=== PATIENT | male | born 1940 | race Caucasian/White ===

== ENCOUNTER 2016-08-13 11:30 | Outpatient (CLI) | payer MEDICARE | END 2016-08-13 11:31 | disposition home or self-care (01) | DX: J18.9 Pneumonia, unspecified organism (principal) ==

== ENCOUNTER 2018-05-18 12:27 | Outpatient (CLI) | payer MEDICARE ==
--- NOTE | 2018-05-18 20:39 | XRAY Report ---
Reason: SOA,COUGH,SMOKER Procedure Date: 05/18/2018 Accession Number: [id number] / [id number] Procedure: XR - Chest 2 View X-Ray CPT Code: 81394 FULL RESULT: EXAM: CHEST RADIOGRAPHY EXAM DATE: 05/18/2018 12:40 PM. CLINICAL HISTORY: Cough. COMPARISON: CHEST 2 VIEW PA/LAT 08/13/2016 11:44 AM CHEST 2 VIEW PA/LAT 07/30/2016 10:07 AM XR CHEST PA AND LAT 06/04/2009 1:17 PM. TECHNIQUE: 2 views. FINDINGS: Lungs/Pleura: No focal opacities evident. No pleural effusion. No pneumothorax. Normal volumes. Mediastinum: Heart and mediastinal contours are notable for aortic calcification. Other: None. IMPRESSION: No acute cardiopulmonary abnormality demonstrated. RADIA
== END 2018-05-18 12:28 | disposition home or self-care (01) ==
LOC: DI 12:27
PROVIDERS: ATTEND Physician Assistant
DX: R06.02 Shortness of breath (principal); F17.200 Nicotine dependence, unspecified, uncomplicated; R05 Cough
CPT/HCPCS: 71046

== ENCOUNTER 2019-03-20 12:39 | Outpatient (CLI) | payer MEDICARE | END 2019-03-20 12:40 | disposition short-term general hospital (02) | LOC: EMS 12:39 | PROVIDERS: ATTEND Surgery | DX: R41.82 Altered mental status, unspecified (principal); R47.9 Unspecified speech disturbances | CPT/HCPCS: A0425; A0427 ==

== ENCOUNTER 2019-08-24 14:53 | Outpatient (CLI) | payer MEDICARE, MEDICAID ==
[2019-08-24 17:38] LABS: INR 1.2 (0.8-1.2); PT - PROTHROMBIN TIME 13.1 secs (9.9-12.6)
[2019-08-24 18:26] LABS: BASOPHILS # (AUTO) 0.1 10^3/uL (0.0-0.1); BASOPHILS % (AUTO) 0.9 %; EOSINOPHILS # (AUTO) 0.2 10^3/uL (0.0-0.7); HGB - HEMOGLOBIN 13.2 g/dL (14.0-18.0); LYMPHOCYTES # (AUTO) 1.3 10^3/uL (1.5-3.5); LYMPHOCYTES % (AUTO) 17.4 %; MEAN CORPUSCULAR HEMOGLOBIN 28.8 pg (27.0-31.0); MEAN CORPUSCULAR HGB CONC 31.6 g/dL (32.0-36.0); MEAN CORPUSCULAR VOLUME 91.1 fL (80.0-94.0); MONOCYTES # (AUTO) 0.6 10^3/uL (0.0-1.0); MONOCYTES % (AUTO) 8.6 %; NEUTROPHILS # (AUTO) 5.2 10^3/uL (1.5-6.6); NEUTROPHILS % (AUTO) 69.6 %; PLT - PLATELET COUNT 298 10^3/uL (130-450); RED BLOOD COUNT 4.59 10^6/uL (4.70-6.10); RED CELL DISTRIBUTION WIDTH 13.2 % (12.0-15.0); WHITE BLOOD COUNT 7.4 x10^3/uL (4.8-10.8)
[2019-08-24 18:38] LABS: CALCIUM 9.9 mg/dL (8.5-10.3); CREATININE 1.5 mg/dL (0.6-1.2)
== END 2019-08-24 14:54 | disposition home or self-care (01) ==
LOC: LAB.S 14:53
PROVIDERS: ATTEND Specialist
DX: I35.0 Nonrheumatic aortic (valve) stenosis (principal); R06.02 Shortness of breath
CPT/HCPCS: 36415; 80048; 85025; 85610

== ENCOUNTER 2019-09-03 17:58 | Outpatient (CLI) | payer MEDICARE, MEDICAID | END 2019-09-03 17:59 | disposition short-term general hospital (02) | LOC: EMS 17:58 | PROVIDERS: ATTEND Surgery | DX: R41.82 Altered mental status, unspecified (principal) | CPT/HCPCS: A0425; A0427 ==

== ENCOUNTER 2019-11-01 15:00 | Outpatient (CLI) | payer MEDICARE, MEDICAID ==
--- NOTE | 2019-11-01 17:17 | CONSULTATION NOTE ---
Palliative Care Consultation - Referral Referring Provider: Sherron Mancera PA-C Time of Visit: [id number] Referral setting: Home Referral Reason: COPD/Severe Aortic Stenosis/ - Information Sources Records reviewed: Previous records reviewed History/Review of Systems obtained from: Patient Exam limitations: Clinical condition (patient with mild cognitive impairment; STM issues; poor health literacy) - History of Present Illness Brief History of Present Illness: This is a 78-year-old gentleman with multiple comorbidities including severe COPD, on intermittent supplemental oxygen, severe aortic valve stenosis awaiting plans for TAVR, CVA in March 2019, history of CHF, history of UT, and recent admission to [facility] for pneumonia and sepsis. Patient was seen by [facility], patient's goals to return to his own home, he had been staying at his daughter's. Medication compliance and adherence was problematic, they have set up a dispensing Mediset. Patient lives in a fairly small upper bedroom room, for which she is very grateful to be back home. He does perceive he has had decline in his health, particularly since his stroke. This occurred on 03/20/2019 was right cerebral. According to him he has no residual, though he does appear to have some slowed cognitive response, but does not appear confused, and able to participate in exam. What is most important to patient, is being home, remaining independent, avoiding hospitalization, and being with family. He has a close relationship with his granddaughter Concepcion, who is off from school secondary to the Covid19 crisis. He does not present with high symptom burden, reports his insomnia is resolved, he does have severe dyspnea but paces activity and does not find it distressful, denies any pain, appetite is good, does have poor activity tolerance and fatigue but does not seem bothered with this. Palliative care to provide support, further follow-up on advanced care planning, and anticipatory guidance. Patient does appear quite frail with all his multiple core morbidities, and at high risk for ED/hospitalization. 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), Other ([facility]) Endocrine/Autoimmune: reports: None GI: reports: GERD : reports: Retention, Frequency HEENT: reports: None Psych: reports: Depression, Panic attacks Musculoskeletal: reports: None MRSA Hx?: No - Past Surgical History General: reports: Colonoscopy Ortho: reports: Arthroscopic surgery Cardiovascular: reports: Coronary stent, Angioplasty HEENT: reports: Tonsil/Adenoidectomy - Substance History Use: Uses substance without health or social issues: Tobacco (shelter smoker; stopped 04/2019) Social History - Living Situation Living arrangement: At home Living Situation: With family (Lives with Anthony wilhelm, his girlfriend, and grandkim. 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 He came up to [facility] after his , to be closer to family. He reports his health has declined significantly since his stroke. Family History - Family History Family History: Mother: (at age 64/CHF), Father: , Other family: Al[facility] Well (daughter ) Family History Comment/Other: of suicide Medications/Allergies - Medications Home Medications: Ambulatory Orders Medication Instructions Recorded Confirmed Venlafaxine ER [Effexor ER] 150 mg PO DAILY 03/16/14 11/02/19 Multivitamin [Multivitamins] 1 each PO DAILY 05/10/14 11/02/19 Alprazolam [Xanax] 0.25 mg PO BID PRN 11/02/19 11/02/19 Amlodipine Besylate 10 mg PO DAILY 11/02/19 11/02/19 Clopidogrel [Plavix] 75 mg PO DAILY 11/02/19 11/02/19 Magnesium Oxide [Magnesium] 400 mg PO DAILY 11/02/19 11/02/19 Metoprolol Succinate 25 mg PO DAILY 11/02/19 11/02/19 Pantoprazole [Protonix] 40 mg PO DAILY 11/02/19 11/02/19 Pravastatin [Pravachol] 10 mg PO DAILY 11/02/19 11/02/19 Suvorexant [Belsomra] 10 mg PO QPM 11/02/19 11/02/19 traZODone [Desyrel] 100 mg PO QPM 04/03/20 04/03/20 - Allergies Allergies/Adverse Reactions: Allergies Allergy/AdvReac Type Severity Reaction Status Date / Time Penicillins Allergy Rash Verified 05/09/14 13:38 Review of Systems - Constitutional Constitutional: reports: Fatigue (very sedentary; spends most of time in room), Weight stable. denies: Fever, Chills - Eyes Eyes: reports: Vision loss - Ears, Nose & Throat Ears, Nose & Throat: reports: Hearing loss, Dry mouth - Cardiovascular Cardiovascular: reports: Exertional dyspnea, Decr. exercise tolerance, Orthopnea. denies: Palpitations, Chest pain, Edema, Lightheadedness - Respiratory Respiratory: reports: Cough (severe coughing spasms when coughs/non productive;), Orthopnea, SOB at rest, SOB with exertion. denies: Sputum production, Hemoptysis - Gastrointestinal Gastrointestinal: reports: Good appetite. denies: Constipation, Nausea, Reflux/heartburn - Genitourinary Genitourinary: reports: Frequency - Musculoskeletal Musculoskeletal: reports: Stiffness, Muscle weakness - Integumentary Integumentary: reports: Dryness. denies: Rash - Neurological Neurological: reports: General weakness, Memory problems (appears A & O; poor STM; poor health history), Abnormal gait - Psychiatric Psychiatric: reports: Anxiety ("get anxious" unable to identify underlying fears/concerns). denies: Depression - Hematologic/Lymphatic Hematologic/Lymphatic: reports: Recurrent infections (recent hospitalization 09/12 pneumonia/sepsis) - All Other Systems All Other Systems: reports: Reviewed and negative Physical Exam - Vital Signs Temperature: 97.1 C Pulse Rate: 72 Respiratory Rate: 18 O2 Saturation: 95 (at 2 liters) Blood Pressure: 116/62 - Physical Exam General Appearance: positive: No acute distress, Alert Eyes Bilateral: positive: Normal inspection ENT: positive: No signs of dehydration Neck: positive: Trachea midline Cardiovascular: positive: Other (murmer) Respiratory: positive: Diminished throughout. negative: Wheezes, Rales, Rhonchi Abdomen: positive: Non-tender, Soft, Nml bowel sounds Skin: positive: Pallor, Dryness Extremities: positive: No pedal edema Neurologic/Psychiatric: positive: Oriented x3, Mood/affect nml, Weakness, Flat affect Palliative Care Pain: No pain Tiredness/Fatigue: Moderate (4-6) Drowsiness/Sedation: Mild (1-3) Nausea: None Anorexia: None Dyspnea: Severe (7-10) Depression: Moderate (4-6) Anxiety: Moderate (4-6) Feelings of wellbeing/Perceived Quality of Life: Good, Acceptable, Improved Sleep: Sleeps well, Sleep improved Constipation: No Performance Status: Patient reports spends most of his time lying on the bed, does have a new recliner. On arrival though he was laying crossways, not propped up. Patient reports he does need help with bathing, this is related to his dyspnea. He does seem quite shaky when walking around the room, and gets quite breathless. 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 He is awaiting further follow-up regarding his TAVR, though given the current climate, unclear if this would be considered elective surgery. Patient's most limiting and debilitating symptom is his dyspnea and activity tolerance. He does perceive things are going well right now, he spends most of his day watching TV. He does interact and enjoys his family, though they come up the stairs to visit him. We did review his feelings regarding his current quality of life in the context of he does perceive it has deteriorated over the last 6 months. Not so much that he is distressed with it, but just as an observation. He does report underlying anxiety, though unable to elicit what these concerns are. He very much wants to stay in his home setting, reports he had been at his daughters but is happier here. He reports his stepson Anthony does feels his Mediset's, unable to get a read on his medication adherence. When asked about his advance care planning, patient does identify Bebe Qureshi as his D POA, but unable to elicit if has documents. Did introduce the POL[facility], does not look familiar to him, and home health nursing notes it does appear there has been some conversation regarding this. Unfortunately his daughter is out of town until the weekend, will need to follow-up. Patient does express wishes he would return to the hospital. Did agree maybe helpful to have a joint visit with daughter/DPOA to define what he would or would not want if he were to become seriously ill again. We also reviewed some of his anxiety and grief regarding losing his , he did find her when she had overdosed. This is continue to provide him a syndrome it sounds a little bit like PTSD in his description of his story.He has also lost a daughter. Impression and Recommendations - Palliative Care Impression: This is a 78-year-old gentleman with severe COPD, severe aortic stenosis, ischemic cardiomyopathy, limited activity tolerance as well as limiting dyspnea. Patient currently has recovered from his pneumonia, has returned back to his home setting, and lives a fairly simple and uncomplicated life. Patient does have a medication dispenser, choco does fills this, and able to get a handle on medication adherence. Palliative care to provide support regarding patient's anticipated and expected ongoing decline, and provide anticipatory guidance. Recommendations/Counseling Done: 1. Advanced COPD. Patient reports he uses oxygen as needed, did have oxygen on arrival. Reports his days fluctuate. Reports he does not use any inhalers at this point in time, has had difficulty with albuterol in the past with tachycardia. Patient is aware of the seriousness of his illness, and is following appropriate COVID19 precautions, his exposure is from his zackon and [id number] who are working out of the home. 2. Aortic stenosis. Patient does appear to easily decompensate with any kind of activity, heart rate increases and becomes more dyspneic. Patient awaiting follow-up on TAVR, had gotten canceled for evaluation secondary to elevated creatinine. Patient does not know when it is rescheduled. He does seem to have some understanding regarding the procedure, and is hopeful will improve his underlying quality of life. We will follow-up with his daughter who oversees his appointments. 3. Insomnia. Patient taking 100 mg of trazodone on an Serrano soma at bedtime. Reports his has not had any further problems and is sleeping without difficulty. Counseling provided regarding sleep hygiene. 4. Medication adherence. Patient does report his talking medication dispenser does keep him were compliant. He does understand he was having difficulty with this, and seems somewhat resigned to it. Reports at this point in time his stepson Anthony is filling it on a regular basis. His daughter Osman had been managing his medications on discharge from hospital. I am unable to confirm patient's medications, list included in note is from primary care. Patient reports he is currently not using any of his inhalers or nebulizer. I am in his room I do not see any PRN alprazolam on and a few supplements. Will confirm with daughter on return as defaults to her as person who could confirm current regimen. 5. Advanced care planning. Patient does have high risk for both functional and ongoing cognitive decline, patient defers to daughter, does feel she would make appropriate decisions. Does not know if he has this in writing, I did review Dr. Anderson's note, and according to primary HHRN had not followed through yet. We will make an appointment to meet with daughter Francisca who is D POA and patient in a future date. Reviewed with palliative care support is, reviewed low symptom burden at this point in time, but do understand is difficult for him to get out for appointments. Contact information and information on service left. Time Spent: 60 minutes with greater than 50% of this done in a establish rapport with palliative care, review of current chronic healthcare conditions, symptom burden, and anticipatory guidance regarding eliciting goals of care. Addendum. Addition of CPT code 40172 for extensive review of patient's records including provider notes [facility] stay pulmonary notes home health care records 35 minutes.
== END 2019-11-01 15:01 | disposition home or self-care (01) ==
LOC: PC 15:00
PROVIDERS: ATTEND Nurse Practitioner Adult Health
DX: Z51.5 Encounter for palliative care (principal); J44.9 Chronic obstructive pulmonary disease, unspecified; I35.0 Nonrheumatic aortic (valve) stenosis; I25.5 Ischemic cardiomyopathy; G31.84 Mild cognitive impairment of uncertain or unknown etiology; F41.9 Anxiety disorder, unspecified; G47.00 Insomnia, unspecified; I25.2 Old myocardial infarction; Z79.899 Other long term (current) drug therapy; Z79.02 Long term (current) use of antithrombotics/antiplatelets; Z91.14 Patient's other noncompliance with medication regimen; Z86.73 Personal history of transient ischemic attack (TIA), and cerebral infarction without residual deficits; Z87.01 Personal history of pneumonia (recurrent)
CPT/HCPCS: 99344; 99358

== ENCOUNTER 2019-12-06 10:45 | Outpatient (CLI) | payer MEDICARE, MEDICAID ==
[2019-12-06 11:44] LABS: HGB - HEMOGLOBIN 14.7 g/dL (14.0-18.0); MEAN CORPUSCULAR HEMOGLOBIN 28.9 pg (27.0-31.0); MEAN CORPUSCULAR HGB CONC 31.8 g/dL (32.0-36.0); MEAN CORPUSCULAR VOLUME 90.9 fL (80.0-94.0); MEAN PLATELET VOLUME 8.6 fL (7.4-11.4); RED BLOOD COUNT 5.08 10^6/uL (4.70-6.10); WHITE BLOOD COUNT 7.8 x10^3/uL (4.8-10.8)
[2019-12-06 11:53] LABS: ALBUMIN 4.1 g/dL (3.2-5.5); ALBUMIN/GLOBULIN RATIO 1.1 (1.0-2.2); BILIRUBIN,TOTAL 0.6 mg/dL (0.2-1.0); CALCIUM 9.2 mg/dL (8.5-10.3); CREATININE 1.1 mg/dL (0.6-1.2)
== END 2019-12-06 23:59 | disposition home or self-care (01) ==
LOC: LAB.R 10:45
PROVIDERS: ATTEND Nurse Practitioner Adult Health
DX: D64.9 Anemia, unspecified (principal); Z79.899 Other long term (current) drug therapy
CPT/HCPCS: 80053; 85027

== ENCOUNTER 2019-12-06 16:34 | Outpatient (CLI) | payer MEDICARE, MEDICAID ==
--- NOTE | 2019-12-06 17:46 | CONSULTATION NOTE ---
Palliative Care Follow Up - Referral Referring Provider: Sherron Mancera PA-C/Dr. Bradshaw Time of Visit: Referral setting: Home Referral Reason: Severe Aortic Stenosis/COPD/Anxiety - Information Sources Records reviewed: Previous records reviewed History/Review of Systems obtained from: Patient Exam limitations: Clinical condition (patient with high anxiety and mild cognitive deficits) - History of Present Illness Update Brief HPI Update: This is an 79-year-old gentleman with multiple comorbidities including severe COPD, severe aortic valve stenosis awaiting plans for TAVR, as well as sequela from CVA in March 2019. Patient also has known history of CHF, history of HI, ischemic dilated cardiomyopathy AAA, GERD, depression, and anxiety attacks. Patient currently is severely impacted by his aortic stenosis, with any kind of activity, he becomes quite breathless. He lives in his bedroom, is unable to go up and down the stairs, has had significant functional decline over the last several weeks to months. He does perceive his quality of life is fair, but finds it quite boring, when asked if he understands the seriousness of his illness. He does understand that something is wrong with his valve, and is hopeful that he will be able to be more functional if he were to receive a TAVR. Patient does not appear to have much insight or understanding of the seriousness of his current condition, nor the risk that may be incurred in the context of surgery or work-up for him. His daughter rightfully so, is concerned about weighing benefits and burdens. She reports that the severity of his activity intolerance is not obvious to providers to see patient is he is usually in his wheelchair. Patient on exam, gets rapidly short of breath with activity, he does report getting "panic attacks at times, and does have underlying anxiety anyway. He describes himself as "a worry wart"". He denies any pain, reports his appetite is good, does need assistance with any kind of ADLs. Would put him at a PPS actually have 40%. He also presents with severe fatigue, severe dyspnea, intermittent insomnia, and deconditioning. Patient does appear quite frail with all his multiple comorbidities and is at high risk for ED/hospitalization. Palliative care has been asked to provide support as patient is unable to get out of the home, to avoid ED visits, as well as 6 tablets goals of care. In meeting with him and his daughter today, patient needs labs for further movement on TAVR work-up. Social History - Living Situation Living arrangement: At home Living Situation: With family (lives with choco Cruz, his girlfriend and granddaughter. His daughter Bebe oversees his care, and assist with medication management. 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 Reports his health has decreased significantly since his stroke in March 2019) Medications/Allergies - Medications Home Medications: Ambulatory Orders Medication Instructions Recorded Confirmed Venlafaxine ER [Effexor ER] 150 mg PO DAILY 03/16/14 12/06/19 Amlodipine Besylate 10 mg PO DAILY 11/02/19 12/06/19 Clopidogrel [Plavix] 75 mg PO DAILY 11/02/19 12/06/19 Magnesium Oxide [Magnesium] 400 mg PO DAILY 11/02/19 12/06/19 Metoprolol Succinate 25 mg PO DAILY 11/02/19 12/06/19 Pantoprazole [Protonix] 40 mg PO DAILY 11/02/19 12/06/19 Pravastatin [Pravachol] 10 mg PO DAILY 11/02/19 12/06/19 traZODone [Desyrel] 100 mg PO QPM 11/02/19 12/06/19 Ipratropium/Albuterol [Duoneb] 1 amp INH Q4HR PRN 12/06/19 12/06/19 Levalbuterol HCl [Xopenex] 1 vial INH Q4HR PRN 12/06/19 12/06/19 Lisinopril [Zestril] 20 mg PO DAILY 12/06/19 12/06/19 Mometasone Furoate [Asmanex] 2 puffs INH DAILY 12/06/19 12/06/19 Tiotropium [place] [Spiriva] 2 puffs INH DAILY 12/06/19 12/06/19 - Allergies Allergies/Adverse Reactions: Allergies Allergy/AdvReac Type Severity Reaction Status Date / Time Penicillins Allergy Rash Verified 05/09/14 13:38 Review of Systems - Constitutional Constitutional: reports: Fatigue, Weight stable. denies: Fever, Chills - Ears, Nose & Throat Ears, Nose & Throat: reports: Hearing loss - Cardiovascular Cardiovascular: reports: Lightheadedness, Exertional dyspnea, Decr. exercise tolerance - Respiratory Respiratory: reports: SOB at rest, SOB with exertion, Other (wears oxygen intermittently;) - Gastrointestinal Gastrointestinal: reports: Good appetite. denies: Constipation, Reflux/heartburn - Genitourinary Genitourinary: reports: Frequency - Musculoskeletal Musculoskeletal: reports: Muscle aches, Limited range of motion, Muscle weakness - Integumentary Integumentary: reports: Dryness - Neurological Neurological: reports: General weakness, Memory problems - Psychiatric Psychiatric: reports: Anxiety - Hematologic/Lymphatic Hematologic/Lymphatic: denies: Recurrent infections - All Other Systems All Other Systems: reports: Other (limited ROS related to memory issues) Physical Exam - Vital Signs Temperature: 97.3 C Pulse Rate: 53 Respiratory Rate: 18 (24 with minor activity) O2 Saturation: 99 (ra @ rest) Blood Pressure: 112/62 - Physical Exam General Appearance: positive: Alert, Mild distress, Anxious Eyes Bilateral: positive: Normal inspection ENT: positive: No signs of dehydration Neck: positive: Trachea midline Cardiovascular: positive: Regular rate & rhythm, Other (murmer) Respiratory: positive: Diminished throughout. negative: Wheezes, Rales, Rhonchi Abdomen: positive: Non-tender, Soft, Nml bowel sounds Skin: positive: Pallor, Dryness Extremities: positive: No pedal edema Neurologic/Psychiatric: positive: Disoriented to time, Weakness, Depressed mood/affect, Flat affect Palliative Care - POLST Patient has POLST: No Pain: No pain Tiredness/Fatigue: Severe (7-10) Drowsiness/Sedation: Moderate (4-6) Nausea: None Anorexia: None Dyspnea: Severe (7-10) Depression: Moderate (4-6) Anxiety: Severe (7-10) Feelings of wellbeing/Perceived Quality of Life: Fair, Acceptable, No change Sleep: Variable sleep pattern Constipation: No Performance Status: Patient with significant alteration to his performance status, related to dyspnea and deconditioning. Patient gets breathless with any kind of activity. He is maximum assist with bathing, dressing, he does have his food prepared for him. He spends most the time in the recliner, or laying in his bed. - Palliative Care Discussion: Patient does find his current quality of life is quite limiting, not able to do much. He is hoping if he were to have a procedure he would be more functional. He does perceive though things are not "that bad". His biggest change in the context of quality of life came with his stroke in March. He very much likes having his room in his house, though has not left it for months now. His thony ghter is more than willing to care for him at her house, but he has wanted to be where he is at this point. He does report he is bored, his lost his glasses previously like to read, he watches TV and visits with family. We did discuss in the context of what would not be acceptable quality of life, as far as threshold. Patient would not want to be more dependent, confused, or her have to be in a fci. We did discuss it is important to ask questions as far as what to expect from the treatment, the risk he is taking has currently he is stable and though his quality of life is limited he is still enjoying it currently. Patient is hoping for the best, does trust the doctors are good. Had a conversation with his daughter, she is worried that the surgery and or even work-up may be too much for him. She is weighing this in the context of harm versus good, does not believe they understand the seriousness of his limitations and functional decline. Patient also has mild cognitive decline as a follow-up from his previous stroke. He does have high anxiety, and some difficulty with health literacy and processing information. We did discuss in just writing down their questions, asking for statistics in weighing benefits versus burden, she really does not want to see him in any way harmed no have to go to a fci. She is hopeful also that may improve his quality of life, though he is been limited for an extended period of time now. Alice did not bring his POLST form or advance care directives, we discussed given his high anxiety today, will revisit this after he has had his test/work-up for his TAVR. Agreed will send my note on to Dr. Colon for his review, she is to have a phone conversation when labs are available. Results - Lab Results Lab results reviewed: Yes Lab and Imaging Results: Labs drawn no significant abnormalities. I do believe his creatinine at 1.1 will qualify him for ability for testing. Impression and Recommendations - Palliative Care Impression: Is an 79-year-old gentleman with severe aortic stenosis, ischemic cardiomyopathy, severe COPD, and limited activity tolerance as well as limiting dyspnea. Patient is getting work-up for TAVR procedure, daughter expressing c oncerns of risks versus benefits. Palliative care to continue provide support regarding following patient secondary to homebound status, drawing labs, and providing anticipatory guidance and advanced care planning. Recommendations/Counseling Done: 1. Medication adherence. We did review his medication list with his daughter, she is filling the medications from bubble packs. Patient does have inhalers, is doing scheduled Spiriva and Asmanex. He does have PRN DuoNeb Xopenex, though has not needed this for several months. Patient does intermittently frequently could milk issue, but it is on a timer with reminders. It is much improved from baseline. Corrected and reconciled medication list. 2. Severe aortic stenosis. Patient is severely limited with significant activity intolerance,And dyspnea. Labs drawn for Dr. Colon, for pending possible angiogram. Counseling provided regarding patient's goals, which is to improve functional status and decrease his respiratory distress. Encouraged both daughter and patient to write down questions, as well as review benefit versus risks in the context of their goals. Labs drawn and delivered to [email or web address], copy will be sent to Dr. Colon 3. COPD. Patient is managing, no recent exacerbations nor need for PRN nebulizers. Patient somewhat confused regarding oxygen, counseling provided regarding changing out cannulas, and indications for use. Reviewed changing cannulas at least monthly, weekly if possible, demonstrated for daughter. 4. Anxiety. Counseling provided regarding normalizing current feelings of distress and concern, hopefully elective surgeries can move forward on his TAVR work-up. Patient is quite bored, we did discuss fixing his classes, so he could start reading again. Reviewed other activities that might improve or past that time. 5. Advanced care planning. Patient does have high risk for both functional and cognitive decline, patient does defer to daughter regarding decision making. We did further discuss goals of care, priorities, and hopes for the future. Daughter did not bring advanced care planning documents, will revisit at next visit. 5 Time Spent: 45 minutes with greater than 50% of this done in counseling regarding goals of care, symptom management, and anticipatory guidance. Labs drawn and taken to [facility].
== END 2019-12-06 16:35 | disposition home or self-care (01) ==
LOC: PC 16:34
PROVIDERS: ATTEND Nurse Practitioner Adult Health
DX: Z51.5 Encounter for palliative care (principal); J44.9 Chronic obstructive pulmonary disease, unspecified; I35.0 Nonrheumatic aortic (valve) stenosis; R53.83 Other fatigue; R53.1 Weakness; F41.9 Anxiety disorder, unspecified; Z79.899 Other long term (current) drug therapy; Z79.02 Long term (current) use of antithrombotics/antiplatelets
CPT/HCPCS: 99349

== ENCOUNTER 2020-01-25 08:00 | Outpatient (CLI) | payer MEDICARE, MEDICAID ==
[2020-01-25 12:54] LABS: BASOPHILS # (AUTO) 0.1 10^3/uL (0.0-0.1); BASOPHILS % (AUTO) 0.7 %; EOSINOPHILS # (AUTO) 0.6 10^3/uL (0.0-0.7); EOSINOPHILS % (AUTO) 6.6 %; HGB - HEMOGLOBIN 12.6 g/dL (14.0-18.0); LYMPHOCYTES # (AUTO) 1.2 10^3/uL (1.5-3.5); LYMPHOCYTES % (AUTO) 13.5 %; MEAN CORPUSCULAR HEMOGLOBIN 28.2 pg (27.0-31.0); MEAN CORPUSCULAR HGB CONC 31.3 g/dL (32.0-36.0); MEAN CORPUSCULAR VOLUME 90.2 fL (80.0-94.0); MEAN PLATELET VOLUME 8.9 fL (7.4-11.4); MONOCYTES # (AUTO) 1.2 10^3/uL (0.0-1.0); MONOCYTES % (AUTO) 13.7 %; NEUTROPHILS # (AUTO) 5.6 10^3/uL (1.5-6.6); NEUTROPHILS % (AUTO) 64.8 %; PLT - PLATELET COUNT 269 10^3/uL (130-450); RED BLOOD COUNT 4.47 10^6/uL (4.70-6.10); RED CELL DISTRIBUTION WIDTH 14.6 % (12.0-15.0); WHITE BLOOD COUNT 8.6 x10^3/uL (4.8-10.8)
[2020-01-25 13:05] LABS: CALCIUM 9.2 mg/dL (8.5-10.3); CREATININE 1.3 mg/dL (0.6-1.2)
== END 2020-01-25 23:59 | disposition home or self-care (01) ==
LOC: LAB.R 08:00
PROVIDERS: ATTEND Internal Medicine Cardiovascular Disease
DX: I25.10 Atherosclerotic heart disease of native coronary artery without angina pectoris (principal); I50.22 Chronic systolic (congestive) heart failure
CPT/HCPCS: 80048; 84443; 85025; 85610

== ENCOUNTER 2020-01-25 10:00 | Outpatient (CLI) | payer MEDICARE, MEDICAID ==
--- NOTE | 2020-01-25 17:00 | CONSULTATION NOTE ---
Palliative Care Follow Up - Referral Referring Provider: Sherron Mancera PA-C Time of Visit: 05-11 Referral setting: Home Referral Reason: COPD/CHF/Goals of Care - Information Sources Records reviewed: Previous records reviewed History/Review of Systems obtained from: Patient, Family (daughter Cynthia present) Exam limitations: Clinical condition (patient with severe STM issues/anxiety) - History of Present Illness Update Brief HPI Update: This is an 79-year-old gentleman with multiple co-morbidities including severe COPD, severe aortic valve stenosis awaiting TAVR, as well as residual sequela from CVA in March 2019. Patient has known history of CHF, history of MD, ischemic dilated cardiomyopathy, AAA, GERD, depression, and anxiety attacks. Patient is scheduled for an angiogram, with possible stent placing. He is being worked up for TAVR, as he has severe aortic stenosis. He is very anxious about the pending exam, his last experience with when he did have significant complications, including recalling the pain and discomfort of the insertion of the Angiocath in his groin. He is hoping for improvement as far as his activity tolerance, as he is quite limited. He is mostly homebound, and living in his bedroom. He spends most of his time in his recliner and or bed. He does need assistance with bathing, and it is a significant effort to get him down the stairs. Patient has been quite anxious, his daughter is been out of town for a week, he has been most likely over using his albuterol, he has very poor short-term memory, so is unable to recall how many times and/ or why. He did have in his work-up, a MRI of the brain, that did show an accumulation of microvascular disease, that may also be contributing to his overall functional decline. I am meeting today with his daughter and myself, as they did want and finish their advance care planning. She did bring multiple forms that they have been given, as well as what they currently have. I am also drawing blood for his pending procedures. Social History - Living Situation Living arrangement: At home Living Situation: With family Support System: Patient lives with his stepson Anthony and his girlfriend and granddaughter. His daughter Bebe oversees his care, calls him daily, and assist with medication management. 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 He lives in an upstairs bedroom, they do provide support, meals, and assistance with bathing. Medications/Allergies - Medications Home Medications: Ambulatory Orders Medication Instructions Recorded Confirmed Venlafaxine ER [Effexor ER] 150 mg PO DAILY 03/16/14 12/06/19 Amlodipine Besylate 10 mg PO DAILY 11/02/19 12/06/19 Clopidogrel [Plavix] 75 mg PO DAILY 11/02/19 12/06/19 Magnesium Oxide [Magnesium] 400 mg PO DAILY 11/02/19 12/06/19 Metoprolol Succinate 25 mg PO DAILY 11/02/19 12/06/19 Pantoprazole [Protonix] 40 mg PO DAILY 11/02/19 12/06/19 Pravastatin [Pravachol] 10 mg PO DAILY 11/02/19 12/06/19 traZODone [Desyrel] 100 mg PO QPM 11/02/19 12/06/19 Ipratropium/Albuterol [Duoneb] 1 amp INH Q4HR PRN 12/06/19 12/06/19 Levalbuterol HCl [Xopenex] 1 vial INH Q4HR PRN 12/06/19 12/06/19 Lisinopril [Zestril] 20 mg PO DAILY 12/06/19 12/06/19 Mometasone Furoate [Asmanex] 2 puffs INH DAILY 12/06/19 12/06/19 Tiotropium [place] [Spiriva] 2 puffs INH DAILY 12/06/19 12/06/19 - Allergies Allergies/Adverse Reactions: Allergies Allergy/AdvReac Type Severity Reaction Status Date / Time Penicillins Allergy Rash Verified 05/09/14 13:38 Review of Systems - Constitutional Constitutional: reports: Fatigue, Weakness, Weight stable. denies: Fever, Chills - Ears, Nose & Throat Ears, Nose & Throat: reports: Hearing loss, Dry mouth - Cardiovascular Cardiovascular: reports: Exertional dyspnea, Decr. exercise tolerance. denies: Chest pain, Edema - Respiratory Respiratory: reports: Cough (no change), Orthopnea, SOB at rest, SOB with exertion - Gastrointestinal Gastrointestinal: reports: Good appetite. denies: Constipation, Nausea - Genitourinary Genitourinary: denies: Incontinence - Musculoskeletal Musculoskeletal: reports: Stiffness, Muscle weakness, Transfer issues (uses wheelchair when out.) - Integumentary Integumentary: reports: Dryness - Neurological Neurological: reports: General weakness, Memory problems (very STM; needs cueing; able to carry on conversation and initiate as well) - Psychiatric Psychiatric: reports: Anxiety (severe; reports at baseline is a "worry wart") - Hematologic/Lymphatic Hematologic/Lymphatic: denies: Recurrent infections - All Other Systems All Other Systems: reports: Reviewed and negative Physical Exam - Vital Signs Temperature: 96.8 C Pulse Rate: 94 Respiratory Rate: 18 O2 Saturation: 96 (on 2 liters; 93% at rest on ra) Blood Pressure: 118/72 - Physical Exam General Appearance: positive: Alert, Mild distress, Anxious Eyes Bilateral: positive: Normal inspection ENT: positive: Hearing loss, Hearing aids, Dry mouth Neck: positive: Trachea midline Cardiovascular: positive: Regular rate & rhythm Respiratory: positive: Diminished throughout, Wheezes (mild exp. wheezes on left) Abdomen: positive: Soft Skin: positive: Pallor, Dryness Extremities: positive: No pedal edema Neurologic/Psychiatric: positive: Mood/affect nml, Disoriented to time, Weakness, Flat affect Palliative Care - POLST Patient has POLST: No POLST Status: Full Code Feelings of wellbeing/Perceived Quality of Life: Fair, Acceptable, No change Sleep: Variable sleep pattern Constipation: No Performance Status: Patient has very limited activity tolerance. He is limited both by his dyspnea, and deconditioning. He gets breathless with any kind of activity. He has a maximum assist with bathing, they are preparing his food for him. He spends most the time in recliner or laying in his bed, would put him at a PPS of 40% - Palliative Care Discussion: Daughter would very much want to complete his advance care planning documents, does have multiple different forms. Patient is very anxious about this, we did discuss in the context of making decisions, he is feeling overwhelmed at the thought of making any decision about the future, as he does not know what that might look like until he is there. We did look at his forms, Cynthia does have financial D POA as well as healthcare DPOAE. Counseling provided regarding the seriousness of his illness, particularly in the context if he were to have a event particularly in the community, where his heart would stop and breathing stop. We discussed given his wishes to not be in a correction, did not lose any further independence, and but his definition of quality of life was, that it would most likely be recommended to be a DNA R/allow natural . We discussed this does not mean do not treat, do not go to the hospitalize but that we would way things in the context of quality of life issues. I had introduced the POLST, he was becoming more anxious, so did back off. We did discuss though that Bebe would be able to make decisions for him if he were not able to participate, and given our conversation today she has a better understanding of what would be most important to him, I do not believe given his short-term memory issues, anxiety, that he may be able weigh benefits and burdens of medical decisions of any significant complexity. He does feel his daughter would do what is appropriate, and does trust her. I did speak with the daughter separately, she does understand given the fragility of his situation, and his concerns about being more dependent understand that most likely the recommendation would be appropriate for DNA R/AMD and selective treatments. Patient would not be a good candidate for ventilatory support with good outcomes incongruence with how he defines his current quality of life. He is quite frail, and is at high risk for sequela relating to his disease processes. 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 Patient to receive angiogram next week, as part of work-up for TAVR procedure. Patient is hoping for improved activity tolerance and better quality of life. Palliative care to continue provide support following patient secondary to homebound status and providing anticipatory guidance and continued advanced care planning. Recommendations/Counseling Done: 1. COPD. Patient has been using nebulizers, most likely overusing them. He gets quite anxious and reaches for them. We discussed an alternative, possibly just putting on his oxygen, some nice deep breathing, working on distraction. Patient does have some expiratory wheezes, has not had any increased cough, patient has poor short-term memory so unclear if having progressive symptoms. Daughter is been gone for a week, so has not been able to track. 2. Severe aortic stenosis. Patient was severely limited activity tolerance, and worsening dyspnea. Labs drawn for Dr. Colon for pending angiogram scheduled 01/29. 3. Anxiety. Patient admits to long-term chronic anxiety, unfortunately is already perseverating regarding pending procedure. Counseling provided and talk through multiple fears. Reassurance given, encouraged distraction, and more positive self talk. 4. Advanced care planning. Patient does have high risk for both functional and ongoing cognitive decline, patient does defer to daughter regarding decision making. We did discuss at length POLST, DNA R, and advanced care planning. Patient is unable to make a decision, her daughter does have DURABLE POWER OF CUSTOMER SUPPLY COORDINATOR for healthcare and financial. We discussed that we can default to her as decision maker, as well as she does understand his current concerns and what is important for his quality of life definitions. Time Spent: 60 minutes with greater than 50% of this done in counseling regarding advanced care planning, goals of care, and anticipatory guidance.
== END 2020-01-25 10:01 | disposition home or self-care (01) ==
LOC: PC 10:00
PROVIDERS: ATTEND Nurse Practitioner Adult Health
DX: Z51.5 Encounter for palliative care (principal); J44.9 Chronic obstructive pulmonary disease, unspecified; I35.0 Nonrheumatic aortic (valve) stenosis; I69.919 Unspecified symptoms and signs involving cognitive functions following unspecified cerebrovascular disease; F41.9 Anxiety disorder, unspecified; R53.1 Weakness; I50.9 Heart failure, unspecified; I25.5 Ischemic cardiomyopathy; I25.2 Old myocardial infarction; Z79.899 Other long term (current) drug therapy; Z79.02 Long term (current) use of antithrombotics/antiplatelets; Z79.51 Long term (current) use of inhaled steroids
CPT/HCPCS: 99350

== ENCOUNTER 2020-01-28 08:00 | Outpatient (CLI) | payer MEDICARE, MEDICAID ==
[2020-01-28 11:45] LABS: PT - PROTHROMBIN TIME 11.9 secs (9.9-12.6)
== END 2020-01-28 23:59 | disposition home or self-care (01) ==
LOC: LAB.R 08:00
PROVIDERS: ATTEND Internal Medicine Cardiovascular Disease
DX: I25.10 Atherosclerotic heart disease of native coronary artery without angina pectoris (principal)
CPT/HCPCS: 85610

== ENCOUNTER 2020-02-17 14:06 | Outpatient (CLI) | payer MEDICARE, MEDICAID | END 2020-02-17 23:59 | disposition short-term general hospital (02) | LOC: EMS 14:06 | PROVIDERS: ATTEND Surgery | DX: R06.02 Shortness of breath (principal); R60.0 Localized edema | CPT/HCPCS: A0425; A0427 ==